=== PATIENT | female | born 2000 | race African-American/Black ===

== ENCOUNTER 2022-11-11 18:35 | Observation (INO) | payer OTHER ==
[~2022-11-11] VITALS: Ht 165.1 cm; Wt 87.1 kg
== END 2022-11-11 22:00 | disposition home or self-care (01) ==
LOC: 8 EST LDRP 18:35
PROVIDERS: ADMIT Obstetrics & Gynecology; ATTEND Obstetrics & Gynecology
DX: O42.92 Full-term premature rupture of membranes, unspecified as to length of time between rupture and onset of labor (principal); O26.893 Other specified pregnancy related conditions, third trimester; M54.9 Dorsalgia, unspecified; Z3A.39 39 weeks gestation of pregnancy
CPT/HCPCS: 59025; 76805; 76818; G0378; 99281